=== PATIENT | male | born 1960 | race Asian ===

== ENCOUNTER 2024-07-12 06:45 | Day surgery (SDC) | payer OTHER ==
[~2024-07-12] VITALS: Ht 175.3 cm; Wt 68.2 kg
[~2024-07-12 06:45] MED LIST: SODIUM CHLORIDE 0.9% 1,000 ML ONE
[2024-07-12] MEDS: SODIUM CHLORIDE 0.9% 1,000 ML IV ONE (07:32)
[2024-07-12] MEDS ORDERED: MIDAZOLAM HCL 2 MG/2 ML VIAL ONE (07:49)
[2024-07-12] MEDS ORDERED: FentaNYL CITRATE PF 100 MCG/2 ML VIAL ONE (07:49)
[2024-07-12 09:40] VITALS: PULSE 67; RESP 18; O2SAT 100
[2024-07-12] MEDS ORDERED: MethylPREDNISolone SOD SUCC 125 MG/2 ML VIAL ONE (09:45)
[2024-07-12] MEDS: MethylPREDNISolone SOD SUCC 125 MG/2 ML VIAL IVP ONE (10:21)
== END 2024-07-12 12:30 | disposition home or self-care (01) ==
LOC: EDSEX 06:45 → SURGERY 06:45
PROVIDERS: ATTEND Internal Medicine Critical Care Medicine
DX: R05.3 Chronic cough (principal); R49.0 Dysphonia; R04.2 Hemoptysis; R06.1 Stridor; R91.8 Other nonspecific abnormal finding of lung field; Z85.038 Personal history of other malignant neoplasm of large intestine; Z98.890 Other specified postprocedural states
CPT/HCPCS: 31623; 31624; 71045; 87015; 87070; 87101; 87206; 87220; 88108; 94640; J2250; J2919; J3010; J7030